=== PATIENT | male | born 1990 | race African-American/Black ===

== ENCOUNTER 2021-05-31 22:39 | Inpatient (IN) | payer OTHER ==
[~2021-05-31] VITALS: Ht 177.8 cm; Wt 98.0 kg
[2021-05-31 23:23] LABS: BASOPHILS % (AUTO) 0.8 % (0.0-2.0); EOSINOPHILS % (AUTO) 3.1 % (1.0-6.0); HEMATOCRIT 48.1 % (41-53); HEMOGLOBIN 16.4 g/dL (13.5-17.5); LYMPHOCYTES # (AUTO) 2.5 K/uL (1.0-4.8); LYMPHOCYTES % (AUTO) 30.7 % (22.0-44.0); MEAN CORPUSCULAR HEMOGLOBIN 29.5 pg (26.0-34.0); MEAN CORPUSCULAR VOLUME 87 fL (80-100); MONOCYTES # (AUTO) 0.6 K/uL (0.1-1.0); MONOCYTES % (AUTO) 7.5 % (2.0-9.0); NEUTROPHILS # (AUTO) 4.7 K/uL (1.8-7.7); NEUTROPHILS % (AUTO) 57.9 % (40.0-70.0); PLATELET COUNT (AUTO) 293 K/uL (150-450); RED BLOOD CELL COUNT(AUTO) 5.54 MIL/uL (4.50-5.90); RED CELL DISTRIBUTION WIDTH 13.2 % (11.5-14.5)
[2021-05-31 23:42] LABS: ANION GAP 8 mmol/L (8-16); CALCIUM, TOTAL 9.3 mg/dL (8.8-10.5); CARBON DIOXIDE 31 mmol/L (22-29); CHLORIDE 101 mmol/L (98-107); CREATININE 0.76 mg/dL (0.60-1.30); GLOMERULAR FILTR. RATE CALC > 60 mL/min (>60); GLUCOSE,RANDOM 95 mg/dL (70-110); POTASSIUM 3.8 mmol/L (3.5-5.1); SODIUM SERUM 140 mmol/L (136-145); UREA NITROGEN, BLOOD 7 mg/dL (7-18)
[2021-05-31] MEDS ORDERED: 0.9% SODIUM CHLORIDE 10 ML SYRINGE IVP PRN (23:45)
[2021-05-31] MEDS ORDERED: ACETAMINOPHEN 325 MG TABLET PO PRN (23:45)
[2021-05-31] MEDS ORDERED: ONDANSETRON HCL 4 MG/2 ML VIAL IVP PRN (23:45)
[2021-05-31 23:48] LABS: ALANINE AMINOTRANSFERASE 83 U/L (12-78); ALBUMIN 4.1 g/dL (3.4-5.0); ALKALINE PHOSPHATASE 88 U/L (46-116); ASPARTATE AMINOTRANSFERASE 29 U/L (15-37); BILIRUBIN,TOTAL 0.3 mg/dL (0.1-1.0); TOTAL PROTEIN, SERUM 8.6 g/dL (6.4-8.2)
[2021-06-01] MEDS ORDERED: ACETAMINOPHEN 325 MG TABLET PO PRN (01:00)
[2021-06-01] MEDS ORDERED: ONDANSETRON HCL 4 MG/2 ML VIAL IVP PRN (01:00)
[2021-06-01 01:35] VITALS: BP 134/71
[2021-06-01 01:42] LABS: COVID AG,FIA SOURCE NASOPHARYNGEAL
[2021-06-01] MEDS ORDERED: INFLUENZA VIRUS VACCINE QVS 2021-22 (6MO+)/PF 60 MCG/0.5 ML SYRINGE IM. ONE (02:30)
[2021-06-01 08:00] VITALS: BP 112/73
[2021-06-01] MEDS: HEPARIN SODIUM,PORCINE 5,000 UNITS/ML VIAL SQ SCH ×2 (08:00→16:00)
[2021-06-01] MEDS: FLUoxetine HCL 20 MG CAPSULE PO SCH (14:30)
[2021-06-01 15:15] VITALS: BP 123/73
[2021-06-01] MEDS: PANTOPRAZOLE SODIUM 40 MG DR TABLET PO SCH (17:30)
[2021-06-01 19:30] VITALS: BP 117/73
[2021-06-01 19:54] LABS: AMPHET/METH SCREEN,URINE NEGATIVE (NEGATIVE); BARBITURATE SCREEN, URINE NEGATIVE (NEGATIVE); BENZODIAZEPINES SCREEN,URINE NEGATIVE (NEGATIVE); CANNABINOID SCREEN,URINE NEGATIVE (NEGATIVE); COCAINE SCREEN,URINE NEGATIVE (NEGATIVE); METHADONE SCREEN, URINE NEGATIVE (NEGATIVE); OPIATE SCREEN,URINE NEGATIVE (NEGATIVE); PHENCYCLIDINE SCREEN,URINE NEGATIVE (NEGATIVE)
[2021-06-01] MEDS: AMOXICILLIN TRIHYDRATE 500 MG CAPSULE PO SCH ×2 (21:00→21:17)
[2021-06-01] MEDS: CLARITHROMYCIN 250 MG TABLET PO SCH (21:00)
[2021-06-01] MEDS: DOXYCYCLINE HYCLATE 50 MG CAPSULE PO SCH (21:00)
[2021-06-02 05:23] VITALS: BP 107/71
[2021-06-02] MEDS: HEPARIN SODIUM,PORCINE 5,000 UNITS/ML VIAL SQ SCH ×4 (08:00→23:58)
[2021-06-02 08:07] VITALS: BP 129/77
[2021-06-02] MEDS: PANTOPRAZOLE SODIUM 40 MG DR TABLET PO SCH ×2 (08:35→08:41)
[2021-06-02] MEDS: FLUoxetine HCL 20 MG CAPSULE PO SCH (08:41)
[2021-06-02] MEDS: CLARITHROMYCIN 250 MG TABLET PO SCH ×2 (10:06→20:44)
[2021-06-02] MEDS: AMOXICILLIN TRIHYDRATE 500 MG CAPSULE PO SCH ×2 (10:06→20:44)
[2021-06-02] MEDS: DOXYCYCLINE HYCLATE 50 MG CAPSULE PO SCH ×2 (10:06→20:44)
[2021-06-02 15:15] VITALS: BP 112/64
[2021-06-02 20:54] VITALS: BP 117/69
[2021-06-03 05:34] VITALS: BP 110/56
[2021-06-03] MEDS: HEPARIN SODIUM,PORCINE 5,000 UNITS/ML VIAL SQ SCH ×2 (08:00→16:00)
[2021-06-03 08:02] VITALS: BP 100/60
[2021-06-03] MEDS: AMOXICILLIN TRIHYDRATE 500 MG CAPSULE PO SCH ×2 (08:26→20:47)
[2021-06-03] MEDS: CLARITHROMYCIN 250 MG TABLET PO SCH ×2 (08:26→20:47)
[2021-06-03] MEDS: DOXYCYCLINE HYCLATE 50 MG CAPSULE PO SCH ×2 (08:27→20:47)
[2021-06-03] MEDS: PANTOPRAZOLE SODIUM 40 MG DR TABLET PO SCH (08:31)
[2021-06-03] MEDS: FLUoxetine HCL 20 MG CAPSULE PO SCH (08:32)
[2021-06-03 15:15] VITALS: BP 105/67
[2021-06-03 19:35] VITALS: BP 115/77
[2021-06-04 04:45] VITALS: BP 99/65
[2021-06-04] MEDS: HEPARIN SODIUM,PORCINE 5,000 UNITS/ML VIAL SQ SCH ×3 (08:00→16:00)
[2021-06-04 08:42] VITALS: BP 106/66
[2021-06-04] MEDS: FLUoxetine HCL 20 MG CAPSULE PO SCH (09:00)
[2021-06-04] MEDS: CLARITHROMYCIN 250 MG TABLET PO SCH (09:08)
[2021-06-04] MEDS: AMOXICILLIN TRIHYDRATE 500 MG CAPSULE PO SCH (09:08)
[2021-06-04] MEDS: DOXYCYCLINE HYCLATE 50 MG CAPSULE PO SCH (09:08)
[2021-06-04] MEDS: PANTOPRAZOLE SODIUM 40 MG DR TABLET PO SCH (09:08)
[2021-06-04] MEDS ORDERED: AMOX500C2 PO (12:50)
[2021-06-04] MEDS ORDERED: CLAR250T39 PO (12:51)
[2021-06-04] MEDS ORDERED: DOXY50 PO (12:53)
[2021-06-04 16:20] VITALS: BP 126/74
== END 2021-06-04 18:00 | DRG 885 ==
LOC: EMS 22:42 → 6S 06-01 00:46
PROVIDERS: ADMIT Internal Medicine; ATTEND Internal Medicine
DX: F33.2 Major depressive disorder, recurrent severe without psychotic features (principal); R45.851 Suicidal ideations; E66.9 Obesity, unspecified; G44.209 Tension-type headache, unspecified, not intractable; K59.00 Constipation, unspecified; R31.9 Hematuria, unspecified; R74.01 Elevation of levels of liver transaminase levels; F43.12 Post-traumatic stress disorder, chronic; F41.9 Anxiety disorder, unspecified; Z20.822 Contact with and (suspected) exposure to COVID-19; Z87.11 Personal history of peptic ulcer disease; Z68.31 Body mass index [BMI] 31.0-31.9, adult; Z28.9 Immunization not carried out for unspecified reason; Z79.899 Other long term (current) drug therapy
CPT/HCPCS: 80053; 85025; 99285; G0480; J1644